=== PATIENT | male | born 1955 | race Caucasian/White ===

== ENCOUNTER 2020-09-17 10:59 | Emergency (ER) | payer BC ==
[~2020-09-17] VITALS: Ht 177.8 cm; Wt 90.0 kg
[2020-09-17 12:14] LABS: HEMOGLOBIN 16.9 g/dl (14.0-18.0); IMMATURE GRANULOCYTES 0.3 % (0.0-5.0); MEAN CELL VOLUME 93.6 fL CALC (80.0-100.0); MEAN CORPUSCULAR HGB 31.6 pG CALC (26.0-32.0); MEAN CORPUSCULAR HGB CONC 33.8 g/dL CAL (32.0-36.0); NEUT# 6.49 thou/uL (1.82-7.42); RED BLOOD COUNT 5.34 mill/uL (4.70-6.10); RED CELL DISTRI WIDTH 11.3 % (11.5-15.5)
[2020-09-17 12:26] LABS: ALBUMIN 4.1 g/dL (3.2-5.0); ALKALINE PHOSPHATASE 128 u/l (38-126); ANION GAP 15 (6-22 (CALC)); BILIRUBIN, TOTAL 0.7 mg/dL (0.0-1.4); BUN 20 mg/dL (8-23); BUN/CREATININE RATIO 31 (12-20 (CALC)); CARBON DIOXIDE 26 mmol/l (22-30); CHLORIDE 97 mmol/l (95-108); CREATININE 0.6 mg/dL (0.7-1.3); GFR > 60 ML/MIN (>=60 (CALC)); GFR FOR AFR.AMER. > 60 ML/MIN (>=60 (CALC)); POTASSIUM 4.9 mmol/l (3.5-5.1); SGOT/AST 36 u/l (19-48); SODIUM 132 mmol/l (137-146); TOTAL PROTEIN 8.1 g/dL (6.3-8.2)
[2020-09-17 12:39] LABS: MYOGLOBIN 22 ng/mL (0 - 121)
[2020-09-17 14:32] LABS: URINE BILIRUBIN - DIPSTICK NEGATIVE (NEGATIVE); URINE BLOOD DIPSTICK TRACE-INTACT (NEGATIVE); URINE COLOR YELLOW; URINE GLUCOSE - DIPSTICK >=1000 mg/dL (NEGATIVE); URINE KETONE 15 mg/dL (NEGATIVE); URINE LEUK ESTERASE NEGATIVE (NEGATIVE); URINE PROTEIN - DIPSTICK >=300 mg/dL (NEG-TRACE); URINE SPECIFIC GRAVITY 1.025; URINE UROBILINOGEN - DIPSTICK 0.2 E.U./dL (0.2)
[2020-09-17 14:34] LABS: URINE NITRITE - DIPSTICK NEGATIVE (Negative)
[2020-09-17 14:36] LABS: URINE EPITHELIAL CELLS FEW EPI/hpf (0-FEW); URINE MUCUS FEW hpf (NONE-FEW); URINE RBC 0-2 RBC/hpf (0-5)
[2020-09-17 16:14] VITALS: BP 157/71
[2020-09-17] MEDS ORDERED: METFORMIN HCL500 M1 PO (16:35)
[2020-09-17] MEDS ORDERED: ZESTRIL10 M1 PO (16:35)
== END 2020-09-17 16:54 | disposition home or self-care (01) | DRG 641 ==
LOC: ED 10:59
PROVIDERS: Emergency Medicine
DX: R73.9 Hyperglycemia, unspecified (principal); I10 Essential (primary) hypertension; B19.20 Unspecified viral hepatitis C without hepatic coma; Z20.822 Contact with and (suspected) exposure to COVID-19

== ENCOUNTER 2022-01-29 19:36 | Emergency (ER) | payer BC ==
[2022-01-29] VITALS (14 sets, daily range): BP systolic 156–193; BP diastolic 71–97
[~2022-01-29] VITALS: Ht 177.8 cm; Wt 77.0 kg
[~2022-01-29 19:36] MED LIST: METFORMIN HCL500 M1 PO; ZESTRIL10 M1 PO
[2022-01-29 20:07] LABS: HEMATOCRIT 45.3 % (39.0-50.0); IMMATURE GRANULOCYTES 0.1 % (0.0-5.0); MEAN CELL VOLUME 93.8 fL CALC (80.0-100.0); MEAN CORPUSCULAR HGB 30.6 pG CALC (26.0-32.0); MEAN CORPUSCULAR HGB CONC 32.7 g/dL CAL (32.0-36.0); NEUT# 6.88 thou/uL (1.82-7.42); RED BLOOD COUNT 4.83 mill/uL (4.70-6.10); RED CELL DISTRI WIDTH 12.8 % (11.5-15.5)
[2022-01-29 20:08] LABS: HEMOGLOBIN 14.8 g/dl (14.0-18.0)
[2022-01-29 20:19] LABS: ALBUMIN 4.7 g/dL (3.2-5.0); ALKALINE PHOSPHATASE 99 u/l (38-126); BILIRUBIN, TOTAL 0.8 mg/dL (0.0-1.4); BUN 26 mg/dL (8-23); CHLORIDE 104 mmol/l (95-108); INTERNATIONAL NORMALIZED RATIO 1.1 RATIO (0.7-1.3); POTASSIUM 4.5 mmol/l (3.5-5.1); PROTHROMBIN TIME 11.2 SECONDS (9.0-12.5); SGOT/AST 31 u/l (19-48); TOTAL PROTEIN 8.4 g/dL (6.3-8.2)
[2022-01-29 20:23] LABS: ANION GAP 20 (6-22 (CALC)); BUN/CREATININE RATIO 14 (12-20 (CALC)); CARBON DIOXIDE 20 mmol/l (22-30); CREATININE 1.9 mg/dL (0.7-1.3); GFR FOR AFR.AMER. 43 ML/MIN (>=60 (CALC)); GFR OTHER RACES 36 ML/MIN (>=60 (CALC)); SODIUM 139 mmol/l (137-146)
[2022-01-29] MEDS ORDERED: ZESTRIL10 M1 PO (20:27)
[2022-01-29] MEDS ORDERED: LIPITOR20 M1 PO (20:30)
[2022-01-29 22:39] LABS: URINE BLOOD DIPSTICK TRACE-INTACT (NEGATIVE); URINE COLOR YELLOW; URINE GLUCOSE - DIPSTICK NEGATIVE (NEGATIVE); URINE KETONE 15 mg/dL (NEGATIVE); URINE LEUK ESTERASE NEGATIVE (NEGATIVE); URINE PH 5.5 (4.5-8.0); URINE PROTEIN - DIPSTICK 100 mg/dL (NEG-TRACE); URINE SPECIFIC GRAVITY >=1.030
[2022-01-29 22:40] LABS: URINE BILIRUBIN - DIPSTICK MODERATE (NEGATIVE); URINE NITRITE - DIPSTICK NEGATIVE (Negative)
[2022-01-29 22:47] LABS: URINE RBC 0-2 RBC/hpf (0-5)
[2022-01-29 22:48] LABS: URINE CASTS MANY lpf (NONE-RARE)
[2022-01-30 00:01] VITALS: BP 174/93
[2022-01-30 01:00] VITALS: BP 170/85
[2022-01-30 02:03] VITALS: BP 124/75
[2022-01-30 02:37] VITALS: BP 124/75
== END 2022-01-30 02:39 | disposition short-term general hospital (02) | DRG 948 ==
LOC: ED 19:36
PROVIDERS: Emergency Medicine
DX: R41.82 Altered mental status, unspecified (principal); I10 Essential (primary) hypertension; E11.9 Type 2 diabetes mellitus without complications; Z86.73 Personal history of transient ischemic attack (TIA), and cerebral infarction without residual deficits; B19.20 Unspecified viral hepatitis C without hepatic coma
CPT/HCPCS: Q3014

== ENCOUNTER 2022-08-22 14:58 | Observation (INO) | payer BC ==
[2022-08-22] VITALS (8 sets, daily range): BP systolic 143–175; BP diastolic 86–102
[~2022-08-22] VITALS: Ht 177.8 cm; Wt 79.4 kg
[~2022-08-22 14:58] MED LIST changes: +LIPITOR20 M1 PO
[2022-08-22 16:01] LABS: BASO% 0.3 % (0-3); EOS% 0.3 % (0-8); HEMATOCRIT 44.5 % (39.0-50.0); HEMOGLOBIN 14.7 g/dl (14.0-18.0); IMMATURE GRANULOCYTES 0.1 % (0.0-5.0); LYMPH% 19.9 % (15-41); MEAN CELL VOLUME 91.4 fL CALC (80.0-100.0); MEAN CORPUSCULAR HGB 30.2 pG CALC (26.0-32.0); NEUT# 4.79 thou/uL (1.82-7.42); NEUT% 71.4 % (42-76); RED BLOOD COUNT 4.87 mill/uL (4.70-6.10); RED CELL DISTRI WIDTH 12.8 % (11.5-15.5)
[2022-08-22 16:03] LABS: ALKALINE PHOSPHATASE 85 u/l (38-126); ANION GAP 12 (6-22 (CALC)); BILIRUBIN, TOTAL 0.9 mg/dL (0.2-1.3); BUN 15 mg/dL (8-23); BUN/CREATININE RATIO 16 (12-20 (CALC)); CARBON DIOXIDE 24 mmol/l (22-30); CHLORIDE 106 mmol/l (95-108); GFR FOR AFR.AMER. > 60 ML/MIN (>=60 (CALC)); GFR OTHER RACES > 60 ML/MIN (>=60 (CALC)); POTASSIUM 5.1 mmol/l (3.5-5.1); SGOT/AST 48 u/l (19-48); SODIUM 136 mmol/l (137-146); TOTAL PROTEIN 7.7 g/dL (6.3-8.2)
[2022-08-22 16:13] LABS: INTERNATIONAL NORMALIZED RATIO 0.9 RATIO (0.7-1.3); PROTHROMBIN TIME 9.3 SECONDS (9.0-12.5)
[2022-08-23] VITALS (8 sets, daily range): BP systolic 105–159; BP diastolic 54–90
[2022-08-23 06:39] LABS: HEMATOCRIT 44.7 % (39.0-50.0); HEMOGLOBIN 14.5 g/dl (14.0-18.0); MEAN CELL VOLUME 92.7 fL CALC (80.0-100.0); MEAN CORPUSCULAR HGB 30.1 pG CALC (26.0-32.0); MEAN CORPUSCULAR HGB CONC 32.4 g/dL CAL (32.0-36.0); RED BLOOD COUNT 4.82 mill/uL (4.70-6.10); RED CELL DISTRI WIDTH 12.7 % (11.5-15.5)
[2022-08-23 06:59] LABS: ALBUMIN 3.8 g/dL (3.2-5.0); ALKALINE PHOSPHATASE 94 u/l (38-126); BUN 14 mg/dL (8-23); BUN/CREATININE RATIO 14 (12-20 (CALC)); CARBON DIOXIDE 27 mmol/l (22-30); CHLORIDE 104 mmol/l (95-108); GFR FOR AFR.AMER. > 60 ML/MIN (>=60 (CALC)); GFR OTHER RACES > 60 ML/MIN (>=60 (CALC)); MAGNESIUM 2.2 mg/dL (1.6-2.3); SGOT/AST 35 u/l (19-48); SODIUM 138 mmol/l (137-146); TOTAL PROTEIN 7.1 g/dL (6.3-8.2)
[2022-08-23 07:01] LABS: ANION GAP 11 (6-22 (CALC)); BILIRUBIN, TOTAL 0.5 mg/dL (0.2-1.3); POTASSIUM 3.9 mmol/l (3.5-5.1)
[2022-08-23 09:18] LABS: URINE BILIRUBIN - DIPSTICK NEGATIVE (NEGATIVE); URINE BLOOD DIPSTICK SMALL (NEGATIVE); URINE COLOR YELLOW; URINE GLUCOSE - DIPSTICK 100 mg/dL (NEGATIVE); URINE KETONE NEGATIVE (NEGATIVE); URINE LEUK ESTERASE NEGATIVE (NEGATIVE); URINE PROTEIN - DIPSTICK >=300 mg/dL (NEG-TRACE); URINE SPECIFIC GRAVITY 1.025; URINE UROBILINOGEN - DIPSTICK 0.2 E.U./dL (0.2)
[2022-08-23 09:29] LABS: URINE NITRITE - DIPSTICK NEGATIVE (Negative)
[2022-08-23 09:32] LABS: URINE MUCUS FEW hpf (NONE-FEW); URINE RBC 0-2 RBC/hpf (0-5)
[2022-08-24 00:11] VITALS: BP 141/71
[2022-08-24 04:27] VITALS: BP 135/61
[2022-08-24 05:01] VITALS: BP 135/61
[2022-08-24 05:48] LABS: BASO% 0.5 % (0-3); EOS% 2.6 % (0-8); HEMATOCRIT 43.2 % (39.0-50.0); HEMOGLOBIN 14.2 g/dl (14.0-18.0); IMMATURE GRANULOCYTES 0.1 % (0.0-5.0); LYMPH% 32.2 % (15-41); MEAN CELL VOLUME 92.3 fL CALC (80.0-100.0); MEAN CORPUSCULAR HGB 30.3 pG CALC (26.0-32.0); MEAN CORPUSCULAR HGB CONC 32.9 g/dL CAL (32.0-36.0); MONO% 11.2 % (2-13); NEUT# 4.23 thou/uL (1.82-7.42); NEUT% 53.4 % (42-76); RED BLOOD COUNT 4.68 mill/uL (4.70-6.10); RED CELL DISTRI WIDTH 12.6 % (11.5-15.5)
[2022-08-24 06:16] LABS: ALBUMIN 3.8 g/dL (3.2-5.0); ALKALINE PHOSPHATASE 88 u/l (38-126); ANION GAP 8 (6-22 (CALC)); BILIRUBIN, TOTAL 0.6 mg/dL (0.2-1.3); BUN 16 mg/dL (8-23); BUN/CREATININE RATIO 16 (12-20 (CALC)); CARBON DIOXIDE 28 mmol/l (22-30); CHLORIDE 105 mmol/l (95-108); GFR FOR AFR.AMER. > 60 ML/MIN (>=60 (CALC)); GFR OTHER RACES > 60 ML/MIN (>=60 (CALC)); SGOT/AST 30 u/l (19-48); SODIUM 137 mmol/l (137-146)
[2022-08-24 06:55] VITALS: BP 168/97
[2022-08-24 08:40] VITALS: BP 145/75
[2022-08-24 10:41] VITALS: BP 147/83
[2022-08-24] MEDS ORDERED: METFORMIN HCL500 M1 PO (11:22)
[2022-08-24] MEDS ORDERED: ZESTRIL10 M1 PO (11:22)
[2022-08-24] MEDS ORDERED: LIPITOR20 M1 PO (11:22)
[2022-08-24] MEDS ORDERED: ADLT ASA LOW81 MG PO (11:22)
== END 2022-08-24 15:10 | disposition home or self-care (01) | DRG 312 ==
LOC: ED 14:58 → ED-I 16:00 → ED 17:26 → MS2 17:27
PROVIDERS: Nurse Practitioner; Nurse Practitioner Family; ADMIT Internal Medicine; ATTEND Internal Medicine
DX: R55 Syncope and collapse (principal); R42 Dizziness and giddiness; I10 Essential (primary) hypertension; E11.9 Type 2 diabetes mellitus without complications; B19.20 Unspecified viral hepatitis C without hepatic coma; E78.5 Hyperlipidemia, unspecified; Z79.84 Long term (current) use of oral hypoglycemic drugs; Z86.73 Personal history of transient ischemic attack (TIA), and cerebral infarction without residual deficits
CPT/HCPCS: G0378

== ENCOUNTER 2023-10-15 16:38 | Observation (INO) | payer MEDICARE ==
[~2023-10-15] VITALS: Ht 180.3 cm; Wt 100.0 kg
[~2023-10-15 16:38] MED LIST changes: +ADLT ASA LOW81 MG PO
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
[2023-10-15] MEDS ORDERED: SODIUM CHLORIDE 0.9% 1,000 ML IV ONE ×2 (16:50→18:20)
[2023-10-15] MEDS ORDERED: Diph, Acellular Pertussis, Tet 0.5 ML/VIAL (Tdap) SDV IM ONE (16:50)
[2023-10-15] MEDS ORDERED: LISINOPRIL10 MG PO (17:15)
[2023-10-15 17:24] LABS: BASO% 0.3 % (0-3); EOS% 0.4 % (0-8); HEMATOCRIT 44.1 % (39.0-50.0); HEMOGLOBIN 14.8 g/dl (14.0-18.0); IMMATURE GRANULOCYTES 0.2 % (0.0-5.0); LYMPH% 9.4 % (15-41); MEAN CELL VOLUME 90.7 fL CALC (80.0-100.0); MEAN CORPUSCULAR HGB 30.5 pG CALC (26.0-32.0); MEAN CORPUSCULAR HGB CONC 33.6 g/dL CAL (32.0-36.0); MONO% 4.3 % (2-13); NEUT# 9.83 thou/uL (1.82-7.42); NEUT% 85.4 % (42-76); RED BLOOD COUNT 4.86 mill/uL (4.70-6.10); RED CELL DISTRI WIDTH 12.7 % (11.5-15.5)
[2023-10-15] MEDS ORDERED: ACETAMINOPHEN 325 MG/TAB PO ONE (17:40)
[2023-10-15 18:02] LABS: ALBUMIN 3.9 g/dL (3.2-5.0); ALKALINE PHOSPHATASE 111 u/l (38-126); BILIRUBIN, TOTAL 0.5 mg/dL (0.2-1.3); BUN 19 mg/dL (8-23); BUN/CREATININE RATIO 11 (12-20 (CALC)); CHLORIDE 115 mmol/l (95-108); CREATININE 1.7 mg/dL (0.7-1.3); ESTIMATED GFR 44 ML/MIN (>=90 (CALC)); POTASSIUM 4.1 mmol/l (3.5-5.1); SGOT/AST 28 u/l (19-48); TOTAL PROTEIN 7.1 g/dL (6.3-8.2)
--- NOTE | 2023-10-15 18:02 | NUR ---
PT RESTING COMFORTABLY. VSS. NO NEEDS AT THIS TIME
[2023-10-15 18:04] LABS: SODIUM 141 mmol/l (137-146)
[2023-10-15 18:05] LABS: ANION GAP 12 (6-22 (CALC)); CARBON DIOXIDE 18 mmol/l (22-30)
[2023-10-15 18:10] LABS: CPK 90 u/l (55-170)
[2023-10-15] MEDS ORDERED: cefTRIAXone SODIUM 2 GM in SODIUM CHLORIDE 0.9% 100 ML IV ONE (18:20)
[2023-10-15 18:30] VITALS: BP 172/103
[2023-10-15 18:45] VITALS: BP 162/94
--- NOTE | 2023-10-15 19:00 | NUR ---
REPORT RECEIVED FROM RENATA MORALES AND CARE RESUMED BY THIS NURSE AT THIS TIME. CALL LIGHT WITHIN REACH AND PT AWAITING CTS TO BE DONE. NT IRVIN IN TO DO #20 INTO RAC FOR CTA. PT HAS NO NEEDS OR CONCERNS.
[2023-10-15 19:01] VITALS: BP 186/101
[2023-10-15 19:01] LABS: URINE BILIRUBIN - DIPSTICK Negative (NEGATIVE); URINE BLOOD DIPSTICK Trace-intact (NEGATIVE); URINE GLUCOSE - DIPSTICK Negative (NEGATIVE); URINE KETONE Negative (NEGATIVE); URINE LEUK ESTERASE Negative (NEGATIVE); URINE NITRITE - DIPSTICK Negative (Negative); URINE PH 5.5 (4.5-8.0); URINE PROTEIN - DIPSTICK 100 mg/dL (NEG-TRACE); URINE SPECIFIC GRAVITY 1.025; URINE UROBILINOGEN - DIPSTICK 0.2 E.U./dL (0.2)
[2023-10-15 19:03] LABS: URINE COLOR Yellow; URINE RBC 0-2 RBC/hpf (0-5); URINE WBC 0-2 WBC/hpf (0-5)
[2023-10-15 19:16] VITALS: BP 168/88
--- NOTE | 2023-10-15 20:04 | NUR ---
PT IN RM AWAITING RESULTS AT THIS TIME. CALL LIGHT WITHIN REACH AND PT HAS NO NEEDS OR CONCERNS AT THIS TIME.
[2023-10-15] MEDS ORDERED: Zaleplon 5 MG/CAP PO PRN (20:50)
[2023-10-15] MEDS ORDERED: ACETAMINOPHEN 325 MG/TAB PO PRN (20:50)
[2023-10-15] MEDS ORDERED: MAGNESIUM HYDROXIDE 30 ML UDC PO PRN (20:50)
[2023-10-15] MEDS ORDERED: SODIUM CHLORIDE 0.9% 1,000 ML IV SCH (20:55)
[2023-10-15] MEDS ORDERED: hydrALAZINE HCL 20 MG/ML VIAL(1 ML) IV PRN (21:00)
[2023-10-15] MEDS ORDERED: PIPERACILLIN Sodium-Tazobactam 3.375 GM in SODIUM CHLORIDE 0.9% 100 ML IV SCH (21:17)
--- NOTE | 2023-10-15 21:21 | NUR ---
PT TO CT AT THIS TIME IN CARE OF SCENE SHIFTER. PT AWAITING ADMISSION TO MED SURG.
--- NOTE | 2023-10-15 21:50 | NUR ---
REPORT GIVEN TO PETROS MORALES AT THIS TIME. PT TO BE TRANSPORTED TO MED SURG RM 278. CALL LIGHT WITHIN REACH.
--- NOTE | 2023-10-15 22:10 | NUR ---
PT TRANSPORTED TO MED SURG 278 AT THIS TIME.
--- NOTE | 2023-10-15 23:00 | NUR ---
RECEIVED FROM ER ALERT ORIENTED X4. RESP EVEN AND UNLABOERD. DENIES PAIN. HAS AN ABRASION ON RIGHT KNEE AND ELBOW.ORIENTED TO ROOM AND PLAN OF CAARE.
[2023-10-15 23:51] VITALS: BP 134/69
[2023-10-16 04:30] VITALS: BP 171/85
[2023-10-16 04:50] VITALS: BP 171/85
[2023-10-16 04:53] LABS: BASO% 0.3 % (0-3); HEMATOCRIT 46.6 % (39.0-50.0); HEMOGLOBIN 15.7 g/dl (14.0-18.0); IMMATURE GRANULOCYTES 0.2 % (0.0-5.0); LYMPH% 20.3 % (15-41); MEAN CORPUSCULAR HGB 30.7 pG CALC (26.0-32.0); MEAN CORPUSCULAR HGB CONC 33.7 g/dL CAL (32.0-36.0); MONO% 8.7 % (2-13); NEUT# 8.68 thou/uL (1.82-7.42); NEUT% 69.5 % (42-76); RED BLOOD COUNT 5.12 mill/uL (4.70-6.10); RED CELL DISTRI WIDTH 12.9 % (11.5-15.5)
[2023-10-16 05:03] LABS: ALBUMIN 4.2 g/dL (3.2-5.0); CREATININE 1.1 mg/dL (0.7-1.3); POTASSIUM 3.7 mmol/l (3.5-5.1); TOTAL PROTEIN 7.5 g/dL (6.3-8.2)
[2023-10-16 05:07] LABS: BILIRUBIN, TOTAL 0.9 mg/dL (0.2-1.3)
[2023-10-16] MEDS ORDERED: TESTOST CYP200 MG/ML IM (05:45)
[2023-10-16] MEDS ORDERED: NIFEDIPINE ER30 MG PO (05:45)
[2023-10-16] MEDS ORDERED: ATORVASTATIN CA80 MG PO (05:46)
[2023-10-16 06:45] VITALS: BP 166/91
--- NOTE | 2023-10-16 07:30 | NUR ---
patient glucose level is 129.
[2023-10-16] MEDS ORDERED: amLODIPine BESYLATE 5 MG/TAB PO SCH (09:00)
[2023-10-16 10:50] VITALS: BP 160/84
--- NOTE | 2023-10-16 12:00 | NUR ---
PT SITTING UP IN CHAIR EATING LUNCH. PT HAS NO C/O PAIN AT THIS TIME. PT HAS CALL LIGHT WTITHIN REACH AND SAFETY MEASURES IN PLACE AT THIS TIME.
--- NOTE | 2023-10-16 12:00 | NUR ---
Discharge instructions given. Patient verbalizes understanding of same. Discharged in stable condition via Wheelchair to Home with family. All belongings sent with pt.
--- NOTE | 2023-10-17 12:39 | NUR ---
PRELIMINARY BLOOD CULTURE SHOWS GRAM POSITIVE COCCI IN 1/4 VIALS. RESULTS REPORTED TO NURSE PRACTITIONER JAMES ALVAREZ. LIKELY CONTAMINATION PER LAB. NO NEW ORDERS. WILL FOLLOW UP WHEN FINAL RESULTS AVAILABLE.
--- NOTE | 2023-10-18 08:07 | NUR ---
Preliminary blood culture results showing 1/4 Staph hominis, most likely a contaminant. No follow-up warranted at this time.
== END 2023-10-16 14:47 | disposition home or self-care (01) ==
LOC: ED 16:38 → ED-I 20:35 → MS2 20:45 → ED 20:45 → MS2 10-16 14:47
PROVIDERS: Family Medicine; Nurse Practitioner Family; ADMIT Internal Medicine; ATTEND Internal Medicine
DX: T67.01XA Heatstroke and sunstroke, initial encounter (principal); E86.0 Dehydration; E87.20 Acidosis, unspecified; N17.9 Acute kidney failure, unspecified; E11.65 Type 2 diabetes mellitus with hyperglycemia; I10 Essential (primary) hypertension; B19.20 Unspecified viral hepatitis C without hepatic coma; X30.XXXA Exposure to excessive natural heat, initial encounter; Z86.73 Personal history of transient ischemic attack (TIA), and cerebral infarction without residual deficits; Z79.84 Long term (current) use of oral hypoglycemic drugs
CPT/HCPCS: Q9967

== ENCOUNTER 2024-01-21 09:16 | Observation (INO) | payer MEDICARE ==
[2024-01-21] VITALS (65 sets, daily range): BP systolic 77–176; BP diastolic 56–103
[~2024-01-21] VITALS: Ht 180.3 cm; Wt 87.0 kg
[~2024-01-21 09:16] MED LIST changes: +ATORVASTATIN CA80 MG PO; +LISINOPRIL10 MG PO; +NIFEDIPINE ER30 MG PO; +TESTOST CYP200 MG/ML IM
--- NOTE | 2024-01-21 09:20 | NUR ---
PT TO ROOM WITH SLOW GAIT
[2024-01-21 10:01] LABS: BASO% 0.6 % (0-3); EOS% 0.4 % (0-8); HEMATOCRIT 46.4 % (39.0-50.0); HEMOGLOBIN 15.5 g/dl (14.0-18.0); IMMATURE GRANULOCYTES 0.2 % (0.0-5.0); LYMPH% 15.5 % (15-41); MEAN CELL VOLUME 90.4 fL CALC (80.0-100.0); MEAN CORPUSCULAR HGB 30.2 pG CALC (26.0-32.0); MEAN CORPUSCULAR HGB CONC 33.4 g/dL CAL (32.0-36.0); MONO% 6.3 % (2-13); NEUT# 7.27 thou/uL (1.82-7.42); RED BLOOD COUNT 5.13 mill/uL (4.70-6.10)
--- NOTE | 2024-01-21 10:19 | NUR ---
1000 NOTED IN TORRES BAG. BAG CLAMPED AT THIS TIME.
[2024-01-21] MEDS ORDERED: SODIUM CHLORIDE 0.9% 1,000 ML IV ONE (10:20)
[2024-01-21] MEDS ORDERED: DILTIAZEM HCL 25 MG/5 ML SDV IV ONE (10:20)
[2024-01-21 10:22] LABS: ALBUMIN 4.2 g/dL (3.2-5.0); BILIRUBIN, TOTAL 0.6 mg/dL (0.2-1.3); CREATININE 1.4 mg/dL (0.7-1.3); POTASSIUM 4.3 mmol/l (3.5-5.1); TOTAL PROTEIN 7.3 g/dL (6.3-8.2)
--- NOTE | 2024-01-21 10:33 | NUR ---
TORRES UNCLAMPED AT THIS TIME
[2024-01-21] MEDS ORDERED: METFORMIN HCL500 M1 PO (10:45)
[2024-01-21 10:46] LABS: URINE BILIRUBIN - DIPSTICK Negative (NEGATIVE); URINE BLOOD DIPSTICK Trace-intact (NEGATIVE); URINE GLUCOSE - DIPSTICK 100 mg/dL (NEGATIVE); URINE KETONE Negative (NEGATIVE); URINE LEUK ESTERASE Negative (NEGATIVE); URINE NITRITE - DIPSTICK Negative (Negative); URINE PROTEIN - DIPSTICK 30 mg/dL (NEG-TRACE); URINE SPECIFIC GRAVITY 1.015
[2024-01-21 10:48] LABS: URINE COLOR Yellow
[2024-01-21 10:56] LABS: URINE RBC 0-2 RBC/hpf (0-5); URINE SQUAMOUS EPITHELIAL CELL RARE EPI/hpf (0-FEW)
[2024-01-21] MEDS ORDERED: METOPROLOL TARTRATE 5 MG/5 ML VIAL IV ONE (11:15)
--- NOTE | 2024-01-21 12:37 | NUR ---
450 EMPTIED FROM TORRES
--- NOTE | 2024-01-21 12:42 | NUR ---
DR. SANTIAGO AND ADRIAN IN TO SEE PATIENT,
[2024-01-21] MEDS ORDERED: MAGNESIUM HYDROXIDE 30 ML UDC PO PRN (13:45)
[2024-01-21] MEDS ORDERED: ACETAMINOPHEN 325 MG/TAB PO PRN (13:45)
[2024-01-21] MEDS ORDERED: SODIUM CHLORIDE 0.9% 1,000 ML IV PRN (13:45)
--- NOTE | 2024-01-21 13:57 | NUR ---
PATIENT ATE ALL OF HIS LUNCH. LYING IN BED WITH NO ACUTE DISTRESS NOTED AT THIS TIME.
[2024-01-21] MEDS ORDERED: Heparin SODIUM (Porcine) 5,000 UNITS/ML SDV SC SCH (14:00)
[2024-01-21] MEDS ORDERED: LISINOPRIL 10 MG/TAB PO SCH (14:00)
--- NOTE | 2024-01-21 15:43 | NUR ---
PATIENT BACK FROM [facility]. REPORT GIVEN TO NICOLÁS.
--- NOTE | 2024-01-21 16:03 | NUR ---
PATIENT TAKEN TO ROOM 272 WITH TELE #4.
--- NOTE | 2024-01-21 16:05 | NUR ---
Patient arrived from ER via wheelchair. Patient able to ambulate to bed with a steady gait. Patient is A&Ox4, on room air, vásquez in place, VS WNL, NSR on tele monitor. Patient has belongings at bedside. Patient oriented to room and use of call light. All needs addressed, call light within reach.
--- NOTE | 2024-01-21 16:06 | NUR ---
called dr veronica office regarding this pt for new onset afib. spoke to cristian was told she would give him the information.
--- NOTE | 2024-01-21 16:08 | NUR ---
called dr boo office spoke to reta about this consultation.
[2024-01-21] MEDS ORDERED: INSULIN LISPRO 100 UNITS/ML ML SC SCH (17:00)
--- NOTE | 2024-01-21 20:00 | NUR ---
PATIENT RESTING IN BED AT THIS TIME WATCHING TV. AWAKE ALERT AND ORIENTEDX3. PATIENT WITH NO COMPLAINTS AT THIS TIME AND STATES THAT HE IS FEELING BETTER SINCE TORRES CATH WAS PLACED IN THE ER FOR URINE RETENTION. PATIENT IS TO F/UP WITH DR. PIERRE MORENO AFTER DISCHARGE FROM HOSP ON 01/31 AT 11AM. PATIENT TO BE DISCHARGE WITH TORRES TO LEG BAG AND ON FLOMAX. PATIENT IS ON TELE AND READING SRF-75 AT THIS TIME. IV SITE TO RAC INTACT AND HEALTHY WITH GOOD BLOOD RETURN WHEN FLUSHED. IVF NS HUNG AND INFUSING AT 100CC/HR ORDERED. TORRES PATENT AND DRAINING YELLOW URINE. LUNGS ARE CLEAR. ABD SOFT WITH ACTIVE BS. LAST BM WAS YESTERDAY 01/19. SAFETY PRECAUTIONS REINFORCED. CALL LIGHT IN REACH. WILL CONT TO MONITOR.
[2024-01-21] MEDS ORDERED: ENOXAPARIN SODIUM 40 MG/0.4 ML SYR SC SCH (21:00)
--- NOTE | 2024-01-21 21:30 | NUR ---
RESTING IN BED-BLOOD SUGAR TONIGHT WAS 153-COVERED WITH 1UNIT OF HUMALOG PER COVERAGE PROTOCOL. PROVIDED WITH SNACK. WILL CONT TO MONITOR.
[2024-01-21] MEDS ORDERED: METOPROLOL TARTRATE 25 MG/TAB PO SCH (22:37)
--- NOTE | 2024-01-22 00:30 | NUR ---
PATIENT RESTING IN BED AT THIS TIME POSITONED ON LEFT SIDE. NO COMPLAINTS AT THIS TIME. TORRES PATENT AND DRAINING WITHOUT ANY DIFFICULTY. IVF NS PATENT AND INFUSING VIA LAC SITE AT 100CC/HR. TELE MONITOR INPLACE AND READING SB-58 AT THIS TIME. CALL LIGHT IN REACH. WILL CONT TO MONITOR.
[2024-01-22 01:22] VITALS: BP 165/78
--- NOTE | 2024-01-22 04:30 | NUR ---
PATIENT RESTING IN BED POSITIONED ON LEFT SIDE. TORRES PATENT AND DRAINING YELLOW URINE. IVF NS PATENT AND INFUSING VIA RAC SITE AT 100CC/HR. TELE MONITOR IN PLACE. CALL LIGHT IN REACH. WILL CONT TO MONITOR.
[2024-01-22 05:13] VITALS: BP 148/76
[2024-01-22 05:34] LABS: BASO% 0.6 % (0-3); EOS% 1.2 % (0-8); HEMOGLOBIN 13.8 g/dl (14.0-18.0); IMMATURE GRANULOCYTES 0.1 % (0.0-5.0); LYMPH% 21.1 % (15-41); MEAN CELL VOLUME 90.7 fL CALC (80.0-100.0); MEAN CORPUSCULAR HGB 30.5 pG CALC (26.0-32.0); MEAN CORPUSCULAR HGB CONC 33.7 g/dL CAL (32.0-36.0); MONO% 9.6 % (2-13); NEUT# 6.99 thou/uL (1.82-7.42); NEUT% 67.4 % (42-76); RED BLOOD COUNT 4.52 mill/uL (4.70-6.10); RED CELL DISTRI WIDTH 13.1 % (11.5-15.5)
[2024-01-22 05:42] LABS: ALBUMIN 3.7 g/dL (3.2-5.0); BILIRUBIN, TOTAL 0.7 mg/dL (0.2-1.3); CREATININE 1.1 mg/dL (0.7-1.3); TOTAL PROTEIN 6.7 g/dL (6.3-8.2)
[2024-01-22 06:14] LABS: MAGNESIUM 1.5 mg/dL (1.6-2.3); POTASSIUM 3.3 mmol/l (3.5-5.1)
[2024-01-22 06:18] LABS: CHOLESTEROL HDL RATIO 3.9 (<4.4 (CALC))
[2024-01-22 07:00] VITALS: BP 157/77
--- NOTE | 2024-01-22 07:30 | NUR ---
Report received from night time babysitter nurse. No events overnight per nurse. Patient is resting in bed eating breakfast, denies any pain. A&Ox4, on room air, VS WNL, NSR on tele monitor, IV fluids running as ordered. All needs addressed, call light within reach.
[2024-01-22] MEDS ORDERED: TAMSULOSIN HCL 0.4 MG CAP PO SCH (08:00)
[2024-01-22] MEDS ORDERED: MAGNESIUM SULFATE HEPTAHYDRATE 50 ML IV SCH (09:00)
[2024-01-22] MEDS ORDERED: POTASSIUM CHLORIDE 20 MEQ/TAB PO SCH (09:00)
[2024-01-22] MEDS ORDERED: APIXABAN BASE 5 MG TAB PO SCH (10:00)
[2024-01-22] MEDS ORDERED: metFORMIN HYDROCHLORIDE 500 MG/TAB PO SCH (10:00)
[2024-01-22] MEDS ORDERED: LISINOPRIL 10 MG/TAB PO SCH (10:00)
[2024-01-22 11:01] VITALS: BP 159/74
--- NOTE | 2024-01-22 12:00 | NUR ---
Patient is resting in bed, denies any pain. A&OX4, on room air, NSR on tele monitor, VS WNL, vásquez in place. All needs addressed, call light within reach.
[2024-01-22] MEDS ORDERED: ELIQUIS5 MG PO (13:45)
[2024-01-22] MEDS ORDERED: LISINOPRIL10 MG PO (13:45)
[2024-01-22] MEDS ORDERED: TAMSULOSIN0.4 MG PO (13:45)
[2024-01-22] MEDS ORDERED: LOPRESSOR25 MG PO (13:46)
[2024-01-22] MEDS ORDERED: ASPIRIN 81 LOW81 MG PO (13:46)
[2024-01-22 15:15] VITALS: BP 135/76
--- NOTE | 2024-01-22 16:00 | NUR ---
atient is resting in bed, denies any pain. A&OX4, on room air, NSR on tele onitor, VS WNL, vásquez in place. All needs addressed, call light within reach.
--- NOTE | 2024-01-22 17:00 | NUR ---
Discharge instructions given. Patient verbalizes understanding of instructions. Patient performed teach back method on how to empty and care for vásquez. All questions answered. IV removed. Discharged in stable condition to Home, left unit via wheelchair with staff. All belongings sent with pt.
[2024-01-22] MEDS ORDERED: ATORVASTATIN CALCIUM 40 MG/TAB PO SCH (21:00)
[2024-01-23] MEDS ORDERED: LISINOPRIL 20 MG/TAB PO SCH (09:00)
== END 2024-01-22 16:47 | disposition home or self-care (01) ==
LOC: ED 09:16 → ED-I 11:50 → ED 12:13 → MS2 12:14
PROVIDERS: Family Medicine; Nurse Practitioner Family; ADMIT Student in an Organized Health Care Education/Training Program; ATTEND Student in an Organized Health Care Education/Training Program
PROC: 0T9B70Z Drainage of Bladder with Drainage Device, Via Natural or Artificial Opening (ICD-10-PCS; principal; 2024-01-21)
DX: I48.91 Unspecified atrial fibrillation (principal); I48.92 Unspecified atrial flutter; R33.9 Retention of urine, unspecified; N17.9 Acute kidney failure, unspecified; I95.2 Hypotension due to drugs; T46.1X5A Adverse effect of calcium-channel blockers, initial encounter; E11.9 Type 2 diabetes mellitus without complications; I10 Essential (primary) hypertension; E78.5 Hyperlipidemia, unspecified; B19.20 Unspecified viral hepatitis C without hepatic coma; Z79.84 Long term (current) use of oral hypoglycemic drugs; Z86.73 Personal history of transient ischemic attack (TIA), and cerebral infarction without residual deficits
CPT/HCPCS: J1650; J3475

== ENCOUNTER 2024-02-01 10:19 | Emergency (ER) | payer MEDICARE ==
[2024-02-01] VITALS (21 sets, daily range): BP systolic 71–208; BP diastolic 45–107
[~2024-02-01] VITALS: Ht 180.3 cm; Wt 83.9 kg
[~2024-02-01 10:19] MED LIST changes: +ASPIRIN 81 LOW81 MG PO; +ELIQUIS5 MG PO; +LOPRESSOR25 MG PO; +TAMSULOSIN0.4 MG PO
[2024-02-01] MEDS ORDERED: SODIUM CHLORIDE 0.9% 1,000 ML IV ONE ×2 (10:40→11:35)
[2024-02-01 11:04] LABS: BASO% 0.5 % (0-3); EOS% 0.4 % (0-8); HEMATOCRIT 43.2 % (39.0-50.0); HEMOGLOBIN 14.4 g/dl (14.0-18.0); IMMATURE GRANULOCYTES 0.2 % (0.0-5.0); LYMPH% 8.2 % (15-41); MEAN CELL VOLUME 90.2 fL CALC (80.0-100.0); MEAN CORPUSCULAR HGB 30.1 pG CALC (26.0-32.0); MEAN CORPUSCULAR HGB CONC 33.3 g/dL CAL (32.0-36.0); MONO% 5.5 % (2-13); NEUT# 10.92 thou/uL (1.82-7.42); NEUT% 85.2 % (42-76); RED BLOOD COUNT 4.79 mill/uL (4.70-6.10); RED CELL DISTRI WIDTH 12.6 % (11.5-15.5)
[2024-02-01 11:19] LABS: CREATININE 1.2 mg/dL (0.7-1.3); TOTAL PROTEIN 7.4 g/dL (6.3-8.2)
[2024-02-01 11:28] LABS: POTASSIUM 4.3 mmol/l (3.5-5.1)
[2024-02-01] MEDS ORDERED: TAMSULOSIN0.4 MG PO (13:08)
[2024-02-02] MEDS ORDERED: LIPITOR80 M1 PO (16:18)
[2024-02-02] MEDS ORDERED: ASPIRINCHW 81MG PO (16:19)
[2024-02-02] MEDS ORDERED: METFORMIN500 M2 PO (16:19)
[2024-02-05] MEDS ORDERED: DOXYCYCLINE100 MG PO (11:47)
== END 2024-02-01 13:40 | disposition home or self-care (01) ==
LOC: ED 10:19
PROVIDERS: Family Medicine
PROC: 0HQ1XZZ Repair Face Skin, External Approach (ICD-10-PCS; principal; 2024-02-01)
DX: S01.81XA Laceration without foreign body of other part of head, initial encounter (principal); S50.811A Abrasion of right forearm, initial encounter; R55 Syncope and collapse; R33.9 Retention of urine, unspecified; E86.0 Dehydration; I10 Essential (primary) hypertension; E11.9 Type 2 diabetes mellitus without complications; B19.20 Unspecified viral hepatitis C without hepatic coma; W18.2XXA Fall in (into) shower or empty bathtub, initial encounter; Y93.E1 Activity, personal bathing and showering; Y92.002 Bathroom of unspecified non-institutional (private) residence as the place of occurrence of the external cause; Z79.01 Long term (current) use of anticoagulants; Z79.84 Long term (current) use of oral hypoglycemic drugs; Z86.73 Personal history of transient ischemic attack (TIA), and cerebral infarction without residual deficits; Z96.0 Presence of urogenital implants

== ENCOUNTER 2024-02-02 10:01 | Emergency (ER) | payer MEDICARE ==
[~2024-02-02] VITALS: Ht 180.3 cm; Wt 81.6 kg
[2024-02-02] VITALS (14 sets, daily range): BP systolic 167–205; BP diastolic 82–125
[2024-02-02 11:59] LABS: URINE BILIRUBIN - DIPSTICK Negative (NEGATIVE); URINE BLOOD DIPSTICK Moderate (NEGATIVE); URINE GLUCOSE - DIPSTICK 100 mg/dL (NEGATIVE); URINE KETONE Trace mg/dL (NEGATIVE); URINE LEUK ESTERASE Negative (NEGATIVE); URINE NITRITE - DIPSTICK Negative (Negative); URINE PH 5.5 (4.5-8.0); URINE PROTEIN - DIPSTICK 30 mg/dL (NEG-TRACE); URINE SPECIFIC GRAVITY 1.015
[2024-02-02 12:03] LABS: URINE COLOR Yellow
[2024-02-02 12:06] LABS: URINE WBC 0-2 WBC/hpf (0-5)
[2024-02-02] MEDS ORDERED: LIPITOR80 M1 PO (16:18)
[2024-02-02] MEDS ORDERED: ASPIRINCHW 81MG PO (16:19)
[2024-02-02] MEDS ORDERED: METFORMIN500 M2 PO (16:19)
[2024-02-05] MEDS ORDERED: DOXYCYCLINE100 MG PO (11:47)
== END 2024-02-02 12:58 | disposition home or self-care (01) ==
LOC: ED 10:01
PROVIDERS: Family Medicine
PROC: 0T9B70Z Drainage of Bladder with Drainage Device, Via Natural or Artificial Opening (ICD-10-PCS; principal; 2024-02-02)
DX: R33.9 Retention of urine, unspecified (principal); I10 Essential (primary) hypertension; E11.9 Type 2 diabetes mellitus without complications; B19.20 Unspecified viral hepatitis C without hepatic coma; Z86.73 Personal history of transient ischemic attack (TIA), and cerebral infarction without residual deficits